=== PATIENT | female | born 1955 | race Caucasian/White ===

== ENCOUNTER → 2016-03-11 | Outpatient (CLI) | payer OTHER ==
--- NOTE | 2016-03-11 09:54 | BD ---
EXAMINATION TYPE: MG DEXA axial skeleton. DATE OF EXAM: 03/11/2016 9:42 AM COMPARISON: NONE CLINICAL HISTORY: M81.8 osteoporosis post menopausal Height: 5' Weight: 149 FRAX RISK QUESTIONS: Alcohol (3 or more units per day): no Family History (Parent hip fracture): no Glucocorticoids (More than 3mos): no (Ex: prednisone, prednisolone, methylprednisolone, dexamethasone, and hydrocortisone). History of Fracture in Adulthood: no Secondary Osteoporosis: 1. Type 1 Diabetes: no 2. Hyperthyroidism: no 3. Menopause before 45: no 4. Malnutrition: no 5. Chronic liver disease: no Rheumatoid Arthritis: no Current Tobacco Use: no RISK FACTORS HISTORY OF: Postmenopausal woman: MEDICATIONS: Thyroid Medications: Which medication: Synthroid How Lon years Additional Medications: blood pressure, cholesterol , vitamin D, acid reflux Additional History: osteoporosis EXAM MEASUREMENTS: Bone mineral densitometry was performed using the [employer] System. Bone mineral density as measured about the Lumbar spine is: ----- L1-L4(G/cm2): 1.224 T Score Values are as follows: ----- L2: -0.1 ----- L3: 0.4 ----- L4: 0.1 ----- L1-L4: 0.4 Bone mineral density about the R hip (g/cm2): 0.847 Bone mineral density about the L hip (g/cm2): 0.955 T Score values are as follows: -----R Neck: -1.4 -----L Neck: -0.6 -----R Intertrochanter: -0.8 -----L Intertrochanter: -0.3 IMPRESSION: Osteopenia (T Score between -2.5 and -1 as noted by T score values : Rt hip There is slightly increased risk of fracture and the patient may be considered for treatment. Re-Screen 1-2 years. NOTE: T-SCORE=SD OF THE YOUNG ADULT MEAN.
== END | disposition home or self-care (01) ==
LOC: RADBDWWP 09:10
PROVIDERS: ATTEND Family Medicine
DX: M85.851 Other specified disorders of bone density and structure, right thigh (principal)
CPT/HCPCS: 77080

== ENCOUNTER → 2016-03-19 | Outpatient (CLI) | payer OTHER ==
--- NOTE | 2016-03-19 12:26 | US ---
EXAMINATION TYPE: US gallbladder DATE OF EXAM: 03/19/2016 9:28 AM COMPARISON: NONE CLINICAL HISTORY: ABD Pain R10.9. Epigastric, RUQ pain EXAM MEASUREMENTS: Liver Length: 12.9 cm Gallbladder Wall: 0.3 cm CBD: 0.7 cm Right Kidney: 9.8 x 3.4 x 4.2 cm TECHNOLOGIST IMPRESSION: Pancreas: limited evaluation due to overlying bowel, visualized portions within normal limits. Liver: Appears heterogeneous Gallbladder: no evidence of stones Evidence for sonographic Moore's sign: no CBD: Minimally dilated Right Kidney: no evidence of hydronephrosis or mass IMPRESSION: No gallstones or ultrasound evidence for acute cholecystitis.
== END | disposition home or self-care (01) ==
LOC: RADUSWWP 09:07
PROVIDERS: ATTEND Family Medicine
DX: R10.9 Unspecified abdominal pain (principal)
CPT/HCPCS: 76705

== ENCOUNTER → 2016-08-24 | Outpatient (CLI) | payer OTHER ==
--- NOTE | 2016-08-24 14:39 | MM ---
Reason for exam: follow-up at short interval from prior study. Last mammogram was performed 8 months ago. History: Patient history of other cancer. Physical Findings: Nurse did not find any significant physical abnormalities on exam. MG Diagnostic Mammo RT w CAD CC and MLO view(s) were taken of the right breast. Prior study comparison: December 26, 2015, right breast MG work up mamm w CAD RT. December 12, 2015, bilateral MG screening mammo w CAD. The breast tissue is heterogeneously dense. This may lower the sensitivity of mammography. There is no discrete abnormality. No significant new findings when compared with previous films. These results were verbally communicated with the patient and result sheet given to the patient on 08/24/16. ASSESSMENT: Negative, BI-RAD 1 RECOMMENDATION: Return to routine screening mammogram schedule for both breasts. Back on schedule for December 2016.
== END ==
LOC: RADMAMWWP 12:33
PROVIDERS: ATTEND Family Medicine
DX: R92.8 Other abnormal and inconclusive findings on diagnostic imaging of breast (principal)

== ENCOUNTER 2016-09-21 10:30 | Day surgery (SDC) | payer OTHER ==
[2016-09-17 13:35] VITALS: BMI 30.2
[~2016-09-21 10:30] MED LIST: LACTATED RINGERS 1,000 ML IV SCH
[2016-09-21 11:19] VITALS: TEMP 98.2
[2016-09-21] MEDS ORDERED: LIDOCAINE 1% 20 ML VIAL (10MG/ML) FOR IV START INTRADERMA ONE (11:22)
[2016-09-21] MEDS ORDERED: PROPOFOL 10 MG/ML 20 ML VIAL IV ONE (12:25)
[2016-09-21 12:50] VITALS: PULSE 50; RESP 16
--- NOTE | 2016-09-21 12:51 | P.PCN ---
Date of Procedure: 09/21/16 Preoperative Diagnosis: Postoperative Diagnosis: Procedure(s) Performed: Procedure: Total colonoscopy. Preoperative diagnosis: Screening for neoplasia, patient has history of polyps. Postoperative diagnosis: Sigmoid diverticulosis with no evidence of acute diverticulitis, strictures, polyps or cancer. Preparation: HalfLytely prep. Sedation: Was provided by anesthesia. Brief clinical history: The patient is a 60-year-old female who is scheduled for this evaluation for screening for neoplasia because of history of polyps. She has no abdominal complaints, bleeding or anemia. Her last colonoscopy was around 3 years ago. Procedure: With the patient on her left lateral decubitus position and after informed consent and adequate sedation, the perianal area was inspected and it did not show any fissures or fistulas. There were no masses felt on digital rectal examination. The Olympus CFQ 160L video colonoscope was then inserted in the rectum in the usual fashion and advanced to the cecum. There multiple diverticular orifices seen scattered in the sigmoid and on the right side with no evidence of acute diverticulitis or strictures. No polyps or tumors were seen. The mucosa appeared healthy. I retroflexed the endoscope in the rectum before the endoscope was withdrawn. The patient tolerated the procedure well. Plan: The patient was reassured. Discussed dietary measures. She will follow up with you as planned and I recommended repeat exam in 5 years. Implants: Indications for Procedure: Operative Findings: Description of Procedure:
[2016-09-21 13:04] VITALS: BP 135/75
== END 2016-09-21 13:31 | disposition home or self-care (01) ==
LOC: ORWHC2ENDO 10:30
DX: Z12.11 Encounter for screening for malignant neoplasm of colon (principal); K57.30 Diverticulosis of large intestine without perforation or abscess without bleeding; Z86.010 Personal history of colon polyps; E07.9 Disorder of thyroid, unspecified; I10 Essential (primary) hypertension; J45.909 Unspecified asthma, uncomplicated; Z79.51 Long term (current) use of inhaled steroids; Z79.899 Other long term (current) drug therapy; Z91.040 Latex allergy status; Z88.5 Allergy status to narcotic agent; Z91.09 Other allergy status, other than to drugs and biological substances
CPT/HCPCS: J2704; G0105

== ENCOUNTER → 2017-12-23 | Outpatient (CLI) | payer OTHER ==
--- NOTE | 2017-12-24 11:37 | MM ---
Reason for exam: screening (asymptomatic). Last mammogram was performed 1 year and 4 months ago. History: Patient has history of other cancer at age 52. Family history of breast cancer in sister at age 45 and breast cancer in maternal cousin. Physical Findings: A clinical breast exam by your physician is recommended on an annual basis and results should be correlated with mammographic findings. MG Screening Mammo w CAD Bilateral CC and MLO view(s) were taken. Prior study comparison: August 24, 2016, right breast MG diagnostic mammo RT w CAD. December 26, 2015, right breast MG work up mamm w CAD RT. The breast tissue is heterogeneously dense. This may lower the sensitivity of mammography. There is no discrete abnormality. ASSESSMENT: Negative, BI-RAD 1 RECOMMENDATION: Routine screening mammogram of both breasts in 1 year.
== END | disposition home or self-care (01) ==
LOC: RADMAMWWP 09:40
DX: Z12.31 Encounter for screening mammogram for malignant neoplasm of breast (principal); Z91.040 Latex allergy status; Z88.7 Allergy status to serum and vaccine; Z88.8 Allergy status to other drugs, medicaments and biological substances; Z88.5 Allergy status to narcotic agent
CPT/HCPCS: 77067

== ENCOUNTER → 2018-02-21 | Outpatient (CLI) | payer OTHER ==
--- NOTE | 2018-02-21 12:46 | MR ---
EXAMINATION TYPE: MR lumbar spine wo con DATE OF EXAM: 02/21/2018 COMPARISON: NONE HISTORY: Radiculopathy, lumbar region TECHNIQUE: T1 and T2 axial and sagittal images of the lumbar spine are submitted. FINDINGS: There is no abnormal signal seen within the visualized spinal cord or paraspinal soft tissu es. At L1-2 there is no disc herniation or canal stenosis. Very mild right lateral disc bulging with mild right foraminal encroachment. Nonspecific marrow signal within the L2 vertebral body. At L2-3 there is degenerative disc disease but no disc herniation or canal stenosis. No foraminal enc roachment. Left-sided nerve root sleeve diverticulum. At L3-4 there is a vacuum disc compatible severe degenerative disc disease with marked facet arthropa thy and grade 1 anterolisthesis. There is a synovial cyst originating from the left facet joint measu ring 4 mm. Central disc bulging with hypertrophic changes and synovial cyst results in severe canal s tenosis and bilateral moderate foraminal encroachment. At L4-5 there is there is a vacuum disc and severe facet arthropathy and diffuse disc bulging. Ligame ntum flavum hypertrophy noted and there is mild central stenosis and bilateral foraminal encroachment . At L5-S1 there is vacuum disc phenomenon with severe facet arthropathy. No Canal stenosis. Neural for renita remain patent. Incidental note made of Tarlov cyst within the sacrum. Bladder appears to be distended anteriorly. IMPRESSION: 1. Severe multilevel degenerative disc disease with vacuum disc and grade 1 anterolisthesis L3 on 4. 2. Multilevel severe facet arthropathy. 3. Severe canal stenosis secondary to hypertrophic changes, disc bulging and synovial cyst at L3-L4. 4. Mild central stenosis L4-L5 due to disc bulging and hypertrophic changes. 5. Fluid-filled structure anteriorly only partially included on the imaging. This likely represents a distended bladder correlate clinically. If clinically warranted ultrasound could be obtained to excl ude ovarian etiology with pelvic ultrasound. Correlate clinically.
== END ==
LOC: RADMRIMAIN 11:05
PROVIDERS: ATTEND Psychiatry & Neurology Neurology
DX: M51.16 Intervertebral disc disorders with radiculopathy, lumbar region (principal); M43.16 Spondylolisthesis, lumbar region; M48.061 Spinal stenosis, lumbar region without neurogenic claudication; M46.96 Unspecified inflammatory spondylopathy, lumbar region; M71.38 Other bursal cyst, other site
CPT/HCPCS: 72148

== ENCOUNTER → 2018-03-08 | Outpatient (CLI) | payer OTHER ==
--- NOTE | 2018-03-08 15:52 | US ---
EXAMINATION TYPE: US pelvis complete transvag DATE OF EXAM: 03/08/2018 COMPARISON: MRI MRI showed possible ovarian cyst/vs bladder. Patient states bladder empty during MRI CLINICAL HISTORY: R93.7 Abnormal findings. TECHNIQUE: Transvaginal (TV) and Transabdominal (TA) . Transabdominal sonographic images of the pel vis were acquired. Transvaginal sonographic images were medically necessary to better assess the fol lowing anatomy: left ovary Date of LMP: Patient had hysterectomy EXAM MEASUREMENTS: Uterus: Surgically absent Endometrial Stripe: Surgically absent Right Ovary: not visualized Left Ovary: Possible left ovarian cyst, left adnexal cyst measuring 10.4 x 7.0 x 5.0cm 1. Uterus: Surgically absent 2. Endometrium: Surgically absent 3. Right Ovary: not visualized 4. Left Ovary: Possible left ovary, left adnexal cyst measuring 10.4 x 7.0 x 5.0cm 5. Bilateral Adnexa: wnl 6. Posterior cul-de-sac: wnl 7. Bladder post void residual 476 ml IMPRESSION: There is 10.4 cm left pelvic probable ovarian nonsimple cyst with internal echoes. This i s abnormal finding in postmenopausal female. Cystic neoplasm cannot be excluded. Due to size it is in completely characterized on pelvic ultrasound. Advise gynecology oncology referral for appropriate la b and clinical workup. Pelvic MRI can be performed to further evaluate if necessary based on referral .
== END ==
LOC: RADUSWWP 14:41
PROVIDERS: ATTEND Psychiatry & Neurology Neurology
DX: R93.7 Abnormal findings on diagnostic imaging of other parts of musculoskeletal system (principal); Z78.0 Asymptomatic menopausal state
CPT/HCPCS: 76830; 76856

== ENCOUNTER → 2018-04-06 | Outpatient (CLI) | payer OTHER ==
[2018-04-06 11:20] LABS: Chloride 103 mmol/L (98-107)
[2018-04-06 11:22] LABS: Anion Gap 10 mmol/L; Blood Urea Nitrogen 16 mg/dL (7-17); Carbon Dioxide 27 mmol/L (22-30); Glucose 143 mg/dL (74-99); Potassium 4.1 mmol/L (3.5-5.1); Sodium 140 mmol/L (137-145)
[2018-04-06 11:26] LABS: Basophils # (A) 0.1 k/uL (0-0.2); Basophils % (A) 1 %; Eosinophils # (A) 0.2 k/uL (0-0.7); Eosinophils % (A) 5 %; HCT 43.2 % (34.0-46.0); Lymphocytes # (A) 1.7 k/uL (1.0-4.8); Lymphocytes % (A) 48 %; MCH 28.8 pg (25.0-35.0); MCHC 32.4 g/dL (31.0-37.0); MCV 88.9 fL (80.0-100.0); Mean Platelet Volume 7.6; Monocytes # (A) 0.2 k/uL (0-1.0); Monocytes % (A) 5 %; Neutrophils # (A) 1.3 k/uL (1.3-7.7); Neutrophils % (A) 36 %; Platelet Count 217 k/uL (150-450); RBC 4.86 m/uL (3.80-5.40); RDW 12.7 % (11.5-15.5); WBC 3.5 k/uL (3.8-10.6)
== END | disposition home or self-care (01) ==
LOC: LABPAT 09:44
PROVIDERS: ATTEND Obstetrics & Gynecology Obstetrics
DX: Z01.818 Encounter for other preprocedural examination (principal); Z01.812 Encounter for preprocedural laboratory examination; E11.9 Type 2 diabetes mellitus without complications; N83.8 Other noninflammatory disorders of ovary, fallopian tube and broad ligament; I10 Essential (primary) hypertension
CPT/HCPCS: 80051; 82565; 82947; 84520; 85025; 87086; 93005

== ENCOUNTER 2018-04-12 05:48 | Day surgery (SDC) | payer OTHER ==
[2018-04-07 09:48] VITALS: BMI 29.6
[~2018-04-12 05:48] MED LIST changes: +DEXAMETHASONE SOD PHOSPHATE 10 MG/ML 1 ML VIAL IV ONE; +MIDAZOLAM 2 MG/2 ML VIAL IV PRN; +ONDANSETRON 4 MG/2 ML VIAL IVP ONE; +SCOPOLAMINE 1.5MG/72HR PATCH TRANSDERM ONE; +ceFAZolin IN SWFI 2 GM/20 ML SYRINGE IVP ONE
[2018-04-12] MEDS ORDERED: ACETAMINOPHEN IV (For NPO) 100 ML IVPB ONE (06:00)
[2018-04-12 06:40] LABS: Glucose,Whole Blood 122 mg/dL (75-99)
[2018-04-12] MEDS ORDERED: LIDOCAINE 1% INJ 10MG/ML (20 ML MDV) ONE (07:35)
[2018-04-12] MEDS ORDERED: GLYCOPYRROLATE 0.2 MG/ML 2 ML VIAL ONE (07:35)
[2018-04-12] MEDS ORDERED: PROPOFOL 10 MG/ML 20 ML VIAL IV ONE (07:35)
[2018-04-12] MEDS ORDERED: MIDAZOLAM 2 MG/2 ML VIAL ONE (07:35)
[2018-04-12] MEDS ORDERED: NEOSTIGMINE 1 MG/ML 10 ML VIAL ONE (07:35)
[2018-04-12] MEDS ORDERED: SUCCINYLCHOLINE CHLORIDE 100 MG/5 ML SYR IV ONE (07:35)
[2018-04-12] MEDS ORDERED: fentaNYL (PF) 50 MCG/ML 2 ML AMP ONE (07:35)
[2018-04-12] MEDS ORDERED: ROCURONIUM BROMIDE 10 MG/ML 10 ML VIAL IV ONE (07:35)
[2018-04-12] MEDS ORDERED: BUPIVACAINE (PF) 0.25% 30 ML VIAL SQ ONE (08:09)
[2018-04-12] MEDS ORDERED: LACTATED RINGERS 1,000 ML IV ONE (09:06)
[2018-04-12 09:32] VITALS: TEMP 100.2
[2018-04-12 09:33] VITALS: RESP 18
[2018-04-12] MEDS: KETOROLAC 30 MG/ML 1 ML VIAL IVP ONE ×2 (09:34→09:55)
[2018-04-12] MEDS: HYDROmorphone 0.5 MG/0.5 ML SYRINGE IVP PRN ×2 (09:49→09:56)
--- NOTE | 2018-04-12 10:26 | P.OP ---
Date of Procedure: 04/12/18 Preoperative Diagnosis: Pelvic mass, ovarian cyst, negative GWENDOLYN testing Postoperative Diagnosis: Same Procedure(s) Performed: Robotic-assisted bilateral salpingo-oophorectomy, diagnostic cystoscopy Anesthesia: JESUS Surgeon: Samantha Castelan Food Concession Manager #1: Mable Arvizu Estimated Blood Loss (ml): 15 IV fluids (ml): 1,000 Urine output (ml): 400 Pathology: other (Bilateral ovaries and fallopian tubes) Disposition: PACU Indications for Procedure: Enlarged cystic mass on the left ovary negative GWENDOLYN testing Operative Findings: Large simple appearing left ovary normal right ovary Description of Procedure: Patient is seen in the preoperative area and informed consent is obtained. Patient was counseled in the office as to risks of surgery including but not limited to infection, bleeding, damage to bladder, bowel, ureteric injury given history of hysterectomy with ovarian conservation. Patient states understanding and wishes to proceed. Patient was taken operating suite where general anesthesia was obtained without difficulty by the anesthesia department. She was prepped and draped in normal sterile fashion in the dorsal lithotomy position a Briscoe catheter was then placed under sterile technique. At this time attention was then turned to the abdomen where 2 finger breaths above the umbilicus a small skin incision is made through this incision the Veress needle was placed. Once the Veress needle is deemed to be in the appropriate position with a drop in CO2 pressure with insufflation of CO2 gas CO2 insufflation was allowed to occur. A proximally 3 L of gas were used to obtain pneumoperitoneum. At this time the incision was extended to 12 mm and a 12 mm trocar and sleeve is placed through the incision and toward the pneumoperitoneum with a tank truck loader scope in place. The above noted findings were visualized. At this time the additional port sites are placed 10 cm lateral and 3 cm inferior to the midline port these are 8 mm operative ports were placed under direct visualization. In the left upper quadrant a 12 mm trocar and sleeve is placed under direct visualization. At this time the da Malgorzata robot was docked in the usual fashion the operative ports were placed in the right operative arm a monopolar scissors was placed in left operative arm the bipolar forceps was placed. Filmy adhesions were noted in the posterior aspect of the left ovarian cyst which are taken down sharply and hemostasis was appreciated. The infundibulopelvic ligament was isolated and regular distally and proximally divided. This continued through the peritoneal sidewall the ovary was then placed in Endo Catch bag after decompression of the simple straw- colored fluid. Hemostasis was appreciated and the ovary was removed from the abdomen in the Endo Catch bag. This was then repeated on the opposite side infant developed publicly was visualized regular distally Divided this continued through the pelvic sidewall with good visualization of the ureter the ovary was then placed in an Endo Catch bag and removed from the abdomen. Hemostasis was appreciated. FloSeal was placed in both pedicle sites. All instrument were then removed from the patient's abdomen and the da Malgorzata was undocked in the usual fashion. Attention was then turned the patient' s Briscoe catheter which was removed and a cystoscopy was performed. A cystoscope was placed through the urethra and toward the bladder clear bubbles noted complete survey of the bladder revealed an intact bladder, both ureteral orifices were noted be spilling clear yellow urine. A cystoscopy fluid was removed and the Briscoe catheter was replaced to drain the rest of the fluid and removed. Attention was then turned the patient's abdomen where the skin incisions were closed with 4-0 Vicryl in a subcuticular fashion. Steri-Strips and sterile dressings were applied as needed. Counts were correct 2 patient tolerated procedure well and was taken the recovery room awake and in stable condition.
[2018-04-12 10:41] VITALS: PULSE 65
[2018-04-12 11:28] VITALS: BP 130/76
== END 2018-04-12 11:30 | disposition home or self-care (01) ==
LOC: OR 05:48
PROVIDERS: ATTEND Obstetrics & Gynecology Obstetrics
DX: D27.1 Benign neoplasm of left ovary (principal); D27.0 Benign neoplasm of right ovary; J45.909 Unspecified asthma, uncomplicated; K21.9 Gastro-esophageal reflux disease without esophagitis; I10 Essential (primary) hypertension; E78.5 Hyperlipidemia, unspecified; E04.1 Nontoxic single thyroid nodule; M19.90 Unspecified osteoarthritis, unspecified site; M85.80 Other specified disorders of bone density and structure, unspecified site; Z85.850 Personal history of malignant neoplasm of thyroid; E11.9 Type 2 diabetes mellitus without complications; I83.90 Asymptomatic varicose veins of unspecified lower extremity; Z90.710 Acquired absence of both cervix and uterus; Z79.890 Hormone replacement therapy; Z79.51 Long term (current) use of inhaled steroids; Z79.899 Other long term (current) drug therapy; Z88.5 Allergy status to narcotic agent; Z88.8 Allergy status to other drugs, medicaments and biological substances; Z91.040 Latex allergy status; Z91.048 Other nonmedicinal substance allergy status; Z80.41 Family history of malignant neoplasm of ovary; Z80.42 Family history of malignant neoplasm of prostate; Z80.3 Family history of malignant neoplasm of breast; Z80.6 Family history of leukemia
CPT/HCPCS: 58661; S2900; 88307; 88342

== ENCOUNTER → 2018-05-06 | Outpatient (CLI) | payer OTHER ==
--- NOTE | 2018-05-06 12:14 | XR ---
EXAMINATION TYPE: XR chest 2V DATE OF EXAM: 05/06/2018 COMPARISON: 08/24/2015 HISTORY: Preoperative clearance. TECHNIQUE: Frontal and lateral views of the chest are obtained. FINDINGS: There is no focal air space opacity, pleural effusion, or pneumothorax seen. The cardiac silhouette size is within normal limits. The osseous structures are intact.. Minimal degenerative c hanges of the thoracic spine are present. IMPRESSION: No acute cardiopulmonary process.
[2018-05-06 13:04] LABS: HCT 42.3 % (34.0-46.0); HGB 14.1 gm/dL (11.4-16.0); MCH 28.6 pg (25.0-35.0); MCHC 33.2 g/dL (31.0-37.0); MCV 86.1 fL (80.0-100.0); Mean Platelet Volume 7.7; Platelet Count 281 k/uL (150-450); RBC 4.91 m/uL (3.80-5.40); WBC 4.1 k/uL (3.8-10.6)
[2018-05-06 13:06] LABS: INR 0.9 (<1.2); Partial Thromboplastin Time 25.6 sec (22.0-30.0); Prothrombin Time 10.1 sec (9.0-12.0)
[2018-05-06 13:23] LABS: ALT 56 U/L (9-52); AST 33 U/L (14-36); Albumin 4.3 g/dL (3.5-5.0); Alkaline Phosphatase 92 U/L (38-126); Anion Gap 11 mmol/L; Blood Urea Nitrogen 17 mg/dL (7-17); Calcium 10.1 mg/dL (8.4-10.2); Carbon Dioxide 25 mmol/L (22-30); Chloride 104 mmol/L (98-107); Glucose 96 mg/dL (74-99); Potassium 4.3 mmol/L (3.5-5.1); Sodium 140 mmol/L (137-145); Total Bilirubin 0.8 mg/dL (0.2-1.3); Total Protein 7.4 g/dL (6.3-8.2)
== END | disposition home or self-care (01) ==
LOC: RADXRMAIN 11:38
PROVIDERS: ATTEND Neurological Surgery
DX: Z01.818 Encounter for other preprocedural examination (principal); S33.131A Dislocation of L3/L4 lumbar vertebra, initial encounter; M54.16 Radiculopathy, lumbar region; M71.38 Other bursal cyst, other site
CPT/HCPCS: 36415; 71046; 80053; 85027; 85610; 85730

== ENCOUNTER → 2019-01-19 | Outpatient (CLI) | payer OTHER ==
--- NOTE | 2019-01-20 12:18 | MM ---
Reason for exam: screening (asymptomatic). Last mammogram was performed 1 year and 1 month ago. History: Patient has history of other cancer at age 52. Family history of breast cancer in sister at age 45 and breast cancer in maternal cousin. Physical Findings: A clinical breast exam by your physician is recommended on an annual basis and results should be correlated with mammographic findings. MG 3D Screening Mammo W/Cad Bilateral CC and MLO view(s) were taken. XCCL view(s) were taken of the right breast. Prior study comparison: December 23, 2017, bilateral MG screening mammo w CAD. August 24, 2016, right breast MG diagnostic mammo RT w CAD. There are scattered fibroglandular densities. No suspicious abnormality. No significant changes when compared with prior studies. ASSESSMENT: Negative, BI-RAD 1 RECOMMENDATION: Routine screening mammogram of both breasts in 1 year.
== END | disposition home or self-care (01) ==
LOC: RADMAMWWP 08:19
DX: Z12.31 Encounter for screening mammogram for malignant neoplasm of breast (principal)
CPT/HCPCS: 77063; 77067

== ENCOUNTER → 2019-11-27 | Outpatient (CLI) | payer OTHER ==
[2019-11-27] MEDS: THYROTROPIN ALFA 1.1 MG VIAL IM SCH (12:48)
[2019-11-28] MEDS: THYROTROPIN ALFA 1.1 MG VIAL IM SCH (12:16)
[2019-11-28 12:24] VITALS: BP 131/79; PULSE 68; RESP 18; TEMP 98.1
--- NOTE | 2019-11-30 18:20 | NM ---
EXAMINATION TYPE: NM I-131 THYROID CANCER METASTATIC SCAN WHOLE BODY DATE OF EXAM: 11/30/2019 HISTORY: 64-year-old female with history of thyroid cancer status post total thyroidectomy and prior radioactive iodine thyroid ablation. COMPARISON: None. TECHNIQUE: Following the oral administration of 3.18 mCi I-131, whole body scan was performed 48 hour s after radiotracer administration. FINDINGS: There is physiologic uptake within the salivary glands, nasopharynx, and also within the stomach, col on, and bladder. No abnormal tracer activity is seen. IMPRESSION: No abnormal tracer activity identified to suggest local recurrence or metastatic disease.
== END | disposition home or self-care (01) ==
LOC: RADNMMAIN 11:59 → EDSTATUS 12:00
PROVIDERS: ATTEND Internal Medicine
DX: C73 Malignant neoplasm of thyroid gland (principal)
CPT/HCPCS: 96372; J3240; 78018

== ENCOUNTER → 2020-04-02 | Outpatient (CLI) | payer OTHER ==
--- NOTE | 2020-04-03 10:15 | MM ---
Reason for exam: screening (asymptomatic). Last mammogram was performed 1 year and 2 months ago. History: Patient has history of other cancer at age 52. Family history of breast cancer in sister at age 45 and breast cancer in maternal cousin. Physical Findings: A clinical breast exam by your physician is recommended on an annual basis and results should be correlated with mammographic findings. MG Screening Mammo w CAD Bilateral CC and MLO view(s) were taken. Prior study comparison: January 19, 2019, bilateral MG 3d screening mammo w/cad. December 23, 2017, bilateral MG screening mammo w CAD. The breast tissue is heterogeneously dense. This may lower the sensitivity of mammography. No significant changes when compared with prior studies. ASSESSMENT: Benign, BI-RAD 2 RECOMMENDATION: Routine screening mammogram of both breasts in 1 year.
== END | disposition home or self-care (01) ==
LOC: RADMAMWWP 09:44
DX: Z12.31 Encounter for screening mammogram for malignant neoplasm of breast (principal); Z88.5 Allergy status to narcotic agent; Z88.8 Allergy status to other drugs, medicaments and biological substances; Z88.7 Allergy status to serum and vaccine; Z91.040 Latex allergy status
CPT/HCPCS: 77067

== ENCOUNTER → 2020-06-11 | Outpatient (CLI) | payer OTHER ==
--- NOTE | 2020-06-11 10:12 | US ---
EXAMINATION TYPE: US abdomen complete DATE OF EXAM: 06/11/2020 COMPARISON: NONE CLINICAL HISTORY: R10.9 ABDOMINAL PAIN. Patient c/o right flank pain,right lateral abdominal pain and pelvic pain x 3 weeks; on cardiac meds and for diabetes EXAM MEASUREMENTS: Liver Length: 14.6 cm Gallbladder Wall: 0.1 cm CBD: 0.2 cm Spleen: 9.4 cm Right Kidney: 10.0 x 4.8 x 3.9 cm Left Kidney: 9.6 x 4.4 x 4.3 cm Pancreas: hyperechoic Liver: hyperechoic to right renal cortex and liver is attenuated posteriorly which suggests fatty li lambert; focal sparing is noted as hypoechoic area near gallbladder. Gallbladder: wnl Evidence for sonographic Moore's sign: no CBD: wnl Spleen: wnl Right Kidney: No hydronephrosis or masses seen Left Kidney: No hydronephrosis or masses seen Upper IVC: wnl Abd Aorta: size is wnl; mild intimal wall thickening is seen distal aorta. IMPRESSION: 1. Hepatic steatosis with areas of focal fatty sparing.
== END | disposition home or self-care (01) ==
LOC: RADUSWWP 09:14
PROVIDERS: ATTEND Family Medicine
DX: K76.0 Fatty (change of) liver, not elsewhere classified (principal)
CPT/HCPCS: 76700

== ENCOUNTER 2020-08-21 07:16 | Day surgery (SDC) | payer OTHER ==
[2020-08-19 15:03] VITALS: BMI 29.5
[~2020-08-21 07:16] MED LIST changes: -DEXAMETHASONE SOD PHOSPHATE 10 MG/ML 1 ML VIAL IV ONE; +LIDOCAINE 1% (10MG/ML) FOR IV START INTRADERMA PRN; -MIDAZOLAM 2 MG/2 ML VIAL IV PRN; -ONDANSETRON 4 MG/2 ML VIAL IVP ONE; -SCOPOLAMINE 1.5MG/72HR PATCH TRANSDERM ONE; -ceFAZolin IN SWFI 2 GM/20 ML SYRINGE IVP ONE
[2020-08-21 07:50] VITALS: TEMP 97.8
[2020-08-21 07:57] LABS: Glucose,Whole Blood 126 mg/dL (75-99)
[2020-08-21] MEDS ORDERED: PROPOFOL 10 MG/ML 20 ML VIAL IV ONE (08:16)
[2020-08-21] MEDS ORDERED: LIDOCAINE 1% INJ 10MG/ML (20 ML MDV) ONE (08:16)
--- NOTE | 2020-08-21 08:33 | P.PCN ---
Date of Procedure: 08/21/20 Procedure(s) Performed: BRIEF HISTORY: Patient is a 64-year-old pleasant white white female scheduled for an elective colonoscopy as a part of evaluation of prior history of colon polyps. Last colonoscopy was 4 years ago. PROCEDURE PERFORMED: Colonoscopy with snare polypectomy. PREOPERATIVE DIAGNOSIS: History of colon polyps. IV sedation per Anesthesia. PROCEDURE: After informed consent was obtained, the patient, was brought into the endoscopy unit. IV sedation was administered by Anesthesia under continuous monitoring. Digital rectal examination was normal. Initially the Olympus CF-160 flexible video colonoscope was then inserted in the rectum, gradually advanced into the cecum without any difficulty. Careful examination was performed as the scope was gradually being withdrawn. Ileocecal valve and the appendiceal orifice were visualized and appeared normal. Prep was excellent. Mucosa of the cecum, ascending colon, transverse colon, appeared normal. In the descending colon there was a 5-6 mm sessile polyp removed by snare polypectomy. Scattered left sided diverticulosis seen. Rest of the descending colon, sigmoid colon, and rectum appeared normal. Retroflexion was performed in the rectum and no lesions were seen. The patient tolerated the procedure well. IMPRESSION: 5-6 mm sessile descending colon polyp status post-polypectomy Scattered left sided diverticulosis RECOMMENDATIONS: Findings of this examination were discussed with the patient as well as her family.. She was advised to follow with the biopsy results. If the biopsy shows an adenoma she can have a repeat colonoscopy in 5 years
[2020-08-21 08:50] VITALS: BP 112/78; PULSE 78; RESP 18
== END 2020-08-21 09:26 | disposition home or self-care (01) ==
LOC: ORWHC2ENDO 07:16
PROVIDERS: ATTEND Internal Medicine Gastroenterology
DX: Z12.11 Encounter for screening for malignant neoplasm of colon (principal); D12.4 Benign neoplasm of descending colon; K57.30 Diverticulosis of large intestine without perforation or abscess without bleeding; Z86.010 Personal history of colon polyps; I10 Essential (primary) hypertension; J45.909 Unspecified asthma, uncomplicated; E11.9 Type 2 diabetes mellitus without complications; Z85.850 Personal history of malignant neoplasm of thyroid; E89.0 Postprocedural hypothyroidism; F41.9 Anxiety disorder, unspecified; K21.9 Gastro-esophageal reflux disease without esophagitis; Z79.51 Long term (current) use of inhaled steroids; Z79.84 Long term (current) use of oral hypoglycemic drugs; Z79.890 Hormone replacement therapy; Z79.899 Other long term (current) drug therapy; Z88.5 Allergy status to narcotic agent; Z91.040 Latex allergy status; Z91.09 Other allergy status, other than to drugs and biological substances
CPT/HCPCS: 88305; 45385; J2001; J2704

== ENCOUNTER → 2021-06-04 | Outpatient (CLI) | payer OTHER ==
--- NOTE | 2021-06-04 15:11 | MM ---
Reason for exam: screening (asymptomatic). Last mammogram was performed 1 year and 2 months ago. History: Patient is postmenopausal and has history of other cancer at age 52. Family history of breast cancer in sister at age 45 and breast cancer in maternal cousin. Physical Findings: A clinical breast exam by your physician is recommended on an annual basis and results should be correlated with mammographic findings. MG Screening Mammo w CAD Bilateral CC and MLO view(s) were taken. Prior study comparison: April 02, 2020, bilateral MG screening mammo w CAD. January 19, 2019, bilateral MG 3d screening mammo w/cad. There are scattered fibroglandular densities. No significant changes when compared with prior studies. ASSESSMENT: Negative, BI-RAD 1 RECOMMENDATION: Routine screening mammogram of both breasts in 1 year.
== END | disposition home or self-care (01) ==
LOC: RADMAMWWP 08:02
DX: Z12.31 Encounter for screening mammogram for malignant neoplasm of breast (principal)
CPT/HCPCS: 77067

== ENCOUNTER → 2022-06-17 | Outpatient (CLI) | payer OTHER ==
--- NOTE | 2022-06-18 08:53 | MM ---
Reason for Exam: Screening (asymptomatic). Last mammogram was performed 1 year(s) and 1 month(s) ago. Patient History: Menarche at age 11. First Full-Term at age 28. Left ovary removed at age 63. Right ovary removed at age 63. Hysterectomy at age 36. Postmenopausal. Other cancer, age 52. Maternal cousin had breast cancer, age 40. Sister had breast cancer, age 45. Risk Values: Elli 5 year model risk: 3.3%. NCI Lifetime model risk: 11.1%. Prior Study Comparison: 01/19/2019 Bilateral Screening Mammogram, [facility]. 04/02/2020 Bilateral Screening Mammogram, [facility]. 06/04/2021 Bilateral Screening Mammogram, [facility]. Tissue Density: There are scattered fibroglandular densities. Findings: Analyzed By CAD. There is no suspicious group of microcalcifications or new suspicious mass in either breast. Overall Assessment: Negative, BI-RAD 1 Management: Screening Mammogram of both breasts in 1 year. . Patient should continue monthly self-breast exams. A clinical breast exam by your physician is recommended on an annual basis. This exam should not preclude additional follow-up of suspicious palpable abnormalities. Note on Elli scores and lifetime risk: 1. A Elli score greater than 3% is considered moderate risk. If this is the case, consider specialist referral to assess eligibility for a risk reducing agent. 2. If overall lifetime risk for the development of breast cancer is 20% or higher, the patient may qualify for future screening with alternating mammogram and breast MRI. Electronically signed and approved by: Anthony Pena M.D.
== END | disposition home or self-care (01) ==
LOC: RADMAMWWP 07:39
DX: Z12.31 Encounter for screening mammogram for malignant neoplasm of breast (principal); Z78.0 Asymptomatic menopausal state; Z80.3 Family history of malignant neoplasm of breast
CPT/HCPCS: 77067

== ENCOUNTER → 2023-09-10 | Outpatient (CLI) | payer OTHER ==
--- NOTE | 2023-10-06 14:01 | MM ---
Reason for Exam: Screening (asymptomatic). Last mammogram was performed 1 year(s) and 3 month(s) ago. Patient History: Menarche at age 11. First Full-Term at age 28. Left ovary removed at age 63. Right ovary removed at age 63. Hysterectomy at age 36. Postmenopausal. Other cancer, age 52. Maternal cousin had breast cancer, age 40. Sister had breast cancer, age 45. Risk Values: Elli 5 year model risk: 2.3%. NCI Lifetime model risk: 7.4%. Prior Study Comparison: 12/26/2015 Right Diagnostic Mammogram, [facility]. 08/24/2016 Right Diagnostic Mammogram, [facility]. 12/23/2017 Bilateral Screening Mammogram, [facility]. 01/19/2019 Bilateral Screening Mammogram, [facility]. 04/02/2020 Bilateral Screening Mammogram, [facility]. 06/04/2021 Bilateral Screening Mammogram, [facility]. 06/17/2022 Bilateral MG screening mammo w CAD, [facility]. Tissue Density: There are scattered areas of fibroglandular density. Findings: Analyzed By CAD. Right breast: There is no suspicious group of microcalcifications or new suspicious mass. Left breast: There is no suspicious group of microcalcifications or new suspicious mass. Overall Assessment: Negative, BI-RAD 1 Management: Screening Mammogram of both breasts in [address] [facility] will attempt to contact patient to return for supplemental views and ultrasound if indicated. Patient should continue monthly self-breast exams. A clinical breast exam by your physician is recommended on an annual basis. This exam should not preclude additional follow-up of suspicious palpable abnormalities. Note on Elli scores and lifetime risk: 1. A Elli score greater than 3% is considered moderate risk. If this is the case, consider specialist referral to assess eligibility for a risk reducing agent. 2. If overall lifetime risk for the development of breast cancer is 20% or higher, the patient may qualify for future screening with alternating mammogram and breast MRI. Electronically signed and approved by: Erick Nj DO
== END | disposition home or self-care (01) ==
LOC: RADMAMWWP 12:54
PROVIDERS: ATTEND Family Medicine
DX: Z12.31 Encounter for screening mammogram for malignant neoplasm of breast (principal); R92.323 Mammographic fibroglandular density, bilateral breasts; Z78.0 Asymptomatic menopausal state; Z80.3 Family history of malignant neoplasm of breast; Z90.721 Acquired absence of ovaries, unilateral
CPT/HCPCS: 77067

== ENCOUNTER → 2024-02-24 | Outpatient (CLI) | payer OTHER ==
--- NOTE | 2024-02-25 18:02 | MR ---
EXAMINATION TYPE: MR lumbar spine wo/w con DATE OF EXAM: 02/24/2024 5:02 PM COMPARISON: None. CLINICAL INDICATION: Female, 68 years old with history of M43.16 Spondylosis, Spondylosis, Low back p ain into both legs x2 years, Hx Back surgery 2017 TECHNIQUE: Multiplanar, multisequence images of the lumbar spine were acquired. IV Contrast: 7 mL Gadobutrol (None, if empty) FINDINGS: Cord ends at the T11-12. 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 L5-S1: Mild disc bulge is present with anterior thecal sac flattening. Mild facet hypertrophy and lig amentum flavum laxity is present. No spinal canal stenosis is present. Mild foraminal narrowing is pr esent. L4-L5: Disc bulge is present with mild to moderate anterior thecal sac flattening. No AP spinal canal stenosis is present. Moderate bilateral foraminal narrowing is present greater on the right. Facet h ypertrophy and ligamentum laxity is posterior lateral thecal sac compression. L3-L4: Disc spacer limits evaluation of the disc level. Some mild left paracentral disc bulge may be present. No AP spinal canal stenosis present. Right facet hypertrophy with moderate posterior lateral thecal sac compression is present. L2-L3: Mild broad-based disc bulge is present. Some subligamentous disc extension may be present post erior to L2 greater in the left paracentral region. This has mild to moderate anterior thecal sac co mpression. No AP spinal canal stenosis is present. Facet hypertrophy and ligamentum flavum laxity of posterior lateral thecal sac compression. Moderate bilateral foraminal stenosis. L1-L2: No focal disc herniation or significant disc bulge. No spinal canal stenosis. Facet hypertrop hy has some posterior lateral thecal sac compression. Mild foraminal narrowing is present. T12-L1: No focal disc herniation or significant disc bulge. No spinal canal stenosis. Neural forame n are patent. IMPRESSION: 1. Postsurgical changes L3-4. No spinal canal stenosis. 2. Subligamentous disc herniation L2-3 in the left paracentral region has moderate anterior thecal sa c compression. No AP spinal canal stenosis. 3. Mild to moderate disc bulging L4-5 4. Multilevel foraminal stenosis. This appears greatest at the L2-3 level with moderate bilateral for aminal narrowing and moderate foraminal narrowing L4-5 bilaterally slightly greater on the right [facility], Workstation: [id number], 02/25/2024 6:00 PM
== END | disposition home or self-care (01) ==
LOC: RADMRIMAIN 15:33
PROVIDERS: ATTEND Orthopaedic Surgery Orthopaedic Surgery of the Spine
DX: M43.16 Spondylolisthesis, lumbar region (principal); M51.16 Intervertebral disc disorders with radiculopathy, lumbar region; M48.061 Spinal stenosis, lumbar region without neurogenic claudication
CPT/HCPCS: 72158; A9585